=== PATIENT | male | born 1955 | race Two or more races ===

== ENCOUNTER 2016-11-08 15:44 | Inpatient (IN) | payer MEDICAID ==
[~2016-11-08] VITALS: Ht 162.6 cm; Wt 56.2 kg
[2016-11-08 16:00] VITALS: BP 146/98
--- NOTE | 2016-11-08 16:02 | Emergency Room Report ---
History of Present Illness General Chief Complaint: Altered Mental Status Source: Patient Present Illness HPI Patient presents for complaints of altered mental status he reports his called the paramedics for possibly a low blood sugar Patient himself is an extremely poor historian Reports taking insulin for his diabetes Also reports that he was at [facility] last week for right eye problems he reports having laser surgery there However his vision is still the same Denies any chest pain or shortness of breath patient appears weak and takes several seconds to start responding to our questioning And is not quite sure about his presentation here today Allergies: Coded Allergies: No Known Allergies (Unverified , 11/08/16) Patient History Past Medical History: see triage record Pertinent Family History: none Reviewed Nursing Documentation: PMH: Agreed, PSxH: Agreed Nursing Documentation-PMH Past Medical History: No History, Except For Hx Hypertension: Yes Hx Diabetes: Yes Review of Systems All Other Systems: negative except mentioned in HPI Physical Exam Vital Signs Date Time Temp Pulse Resp B/P Pulse Ox O2 Delivery O2 Flow Rate FiO2 11/08/16 15:42 87 16 156/99 100 Room Air Sp02 EP Interpretation: reviewed, normal General Appearance: well appearing, no apparent distress Head: normocephalic, atraumatic Eyes: bilateral eye EOMI, bilateral eye PERRL, bilateral eye other - Patient is blind in the right eye ENT: hearing grossly normal, TMs + canals normal, uvula midline, dry mucus membranes Neck: full range of motion, supple, no meningismus, no bony tend Respiratory: lungs clear, normal breath sounds, no rhonchi, no respiratory distress, no retraction, no accessory muscle use Cardiovascular #1: normal peripheral pulses, regular rate, rhythm, no edema, no gallop, no JVD, no murmur Gastrointestinal: normal bowel sounds, non tender, soft, no mass, no organomegaly, non-distended, no guarding, no hernia, no pulsatile mass, no rebound Genitourinary: no CVA tenderness Musculoskeletal: normal inspection Neurologic: oriented x3, responsive, sensory intact Psychiatric: mood/affect normal Skin: warm/dry, other - foot ulcer Lymphatic: normal inspection, no adenopathy Medical Decision Making Diagnostic Impression: Primary Impression: Hypoglycemia Additional Impression: Altered mental status ER Course Multiple differentials considered The patient is complex requiring extensive blood work At this time the patient's hemoglobin has slowly declined He did receive high-dose of glucose by paramedics Given the oral intake and the patient's poor outpatient disposition Patient was admitted for further inpatient care Labs Test 11/08/16 16:15 11/08/16 16:21 White Blood Count 7.6 K/UL (4.8-10.8) Red Blood Count 3.99 M/UL (4.70-6.10) Hemoglobin 11.7 G/DL (14.2-18.0) Hematocrit 35.0 % (42.0-52.0) Mean Corpuscular Volume 88 FL (80-99) Mean Corpuscular Hemoglobin 29.3 PG (27.0-31.0) Mean Corpuscular Hemoglobin Concent 33.4 G/DL (32.0-36.0) Red Cell Distribution Width 10.7 % (11.6-14.8) Platelet Count 292 K/UL (150-450) Mean Platelet Volume 7.8 FL (6.5-10.1) Neutrophils (%) (Auto) 61.3 % (45.0-75.0) Lymphocytes (%) (Auto) 19.2 % (20.0-45.0) Monocytes (%) (Auto) 10.4 % (1.0-10.0) Eosinophils (%) (Auto) 8.1 % (0.0-3.0) Basophils (%) (Auto) 1.0 % (0.0-2.0) Prothrombin Time 13.2 SEC (9.30-11.50) Prothromb Time International Ratio 1.3 (0.9-1.1) Activated Partial Thromboplast Time 32 SEC (23-33) Sodium Level 138 mEQ/L (135-145) Potassium Level 3.9 mEQ/L (3.4-4.9) Chloride Level 96 mEQ/L (98-107) Carbon Dioxide Level 24 mEQ/L (20-30) Anion Gap 18 (5-15) Blood Urea Nitrogen 18 mg/dL (7-23) Creatinine 0.7 mg/dL (0.7-1.2) Estimat Glomerular Filtration Rate > 60 mL/min (>60) Glucose Level 212 mg/dL (74-106) Lactic Acid Level 1.50 mmol/L (0.66-2.22) Calcium Level 9.6 mg/dL (8.6-10.2) Total Bilirubin 0.2 mg/dL (0.0-1.2) Aspartate Amino Transf (AST/SGOT) 23 U/L (5-40) Alanine Aminotransferase (ALT/SGPT) 18 U/L (3-41) Alkaline Phosphatase 106 U/L (40-129) Total Creatine Kinase 58 U/L (38-174) Creatine Kinase MB 2.8 ng/mL (< 6.7) Creatine Kinase MB Relative Index 4.8 Troponin I < 0.30 ng/mL (<=0.30) Pro-B-Type Natriuretic Peptide 305 pg/mL (0-125) Total Protein 8.0 g/dL (6.6-8.7) Albumin 3.8 g/dL (3.5-5.2) Globulin 4.2 g/dL Albumin/Globulin Ratio 0.9 (1.0-2.7) Lipase 63 U/L (< 60) Urine Color Pale yellow Urine Appearance Clear Urine pH 7 (4.5-8.0) Urine Specific [place] 1.005 (1.005-1.035) Urine Protein Negative (NEGATIVE) Urine Glucose (UA) 3+ (NEGATIVE) Urine Ketones Negative (NEGATIVE) Urine Occult Blood 1+ (NEGATIVE) Urine Nitrite Negative (NEGATIVE) Urine Bilirubin Negative (NEGATIVE) Urine Urobilinogen Normal MG/DL (0.0-1.0) Urine Leukocyte Esterase Negative (NEGATIVE) Urine RBC 0-2 /HPF (0 - 0) Urine WBC 0-2 /HPF (0 - 0) Urine Squamous Epithelial Cells Occasional /LPF Urine Bacteria Occasional /HPF (NONE) Rhythm Strip Diag. Results EP Interpretation: yes Rate: 77 Rhythm: NSR, no PVC's, no ectopy Chest X-Ray Diagnostic Results EP Interpretation: Yes Findings: no consolidation, no effusion, no pneumothorax Number of Views: 1 Last Vital Signs Date Time Temp Pulse Resp B/P Pulse Ox O2 Delivery O2 Flow Rate FiO2 11/08/16 15:42 87 16 156/99 100 Room Air Status: improved Disposition: ADMITTED INPATIENT Condition: Serious OSMIN DUNHAM D.O. Nov 08, 2016 16:02
[2016-11-08 16:34] LABS: EOSINOPHILS % (AUTO) 8.1 % (0.0-3.0); LYMPHOCYTES % (AUTO) 19.2 % (20.0-45.0); MEAN CORPUSCULAR HEMOGLOBIN 29.3 PG (27.0-31.0); MEAN CORPUSCULAR HGB CONC 33.4 G/DL (32.0-36.0); MEAN CORPUSCULAR VOLUME 88 FL (80-99); MEAN PLATELET VOLUME 7.8 FL (6.5-10.1); MONOCYTES % (AUTO) 10.4 % (1.0-10.0); NEUTROPHILS % (AUTO) 61.3 % (45.0-75.0); PLATELET COUNT 292 K/UL (150-450); RED BLOOD COUNT 3.99 M/UL (4.70-6.10); RED CELL DISTRIBUTION WIDTH 10.7 % (11.6-14.8); WHITE BLOOD COUNT 7.6 K/UL (4.8-10.8)
[2016-11-08 16:40] LABS: INR 1.3 (0.9-1.1); PROTHROMBIN TIME 13.2 SEC (9.30-11.50)
[2016-11-08 16:52] LABS: TROPONIN I < 0.30 ng/mL (<=0.30)
[2016-11-08 16:55] LABS: ALANINE AMINOTRANSFERASE 18 U/L (3-41); ALBUMIN/GLOBULIN RATIO 0.9 (1.0-2.7); ASPARTATE AMINO TRANSFERASE 23 U/L (5-40); CALCIUM 9.6 mg/dL (8.6-10.2); CHLORIDE 96 mEQ/L (98-107); CREATININE 0.7 mg/dL (0.7-1.2); GLOMERULAR FILTRATION RATE > 60 mL/min (>60); HEMOLYSIS 27; LIPASE 63 U/L (< 60); POTASSIUM 3.9 mEQ/L (3.4-4.9); SODIUM 138 mEQ/L (135-145)
[2016-11-08 17:04] LABS: APPEARANCE,URINE CLEAR; KETONES,URINE NEGATIVE (NEGATIVE); LEUKOCYTE ESTERASE ,URINE NEGATIVE (NEGATIVE); NITRITE,URINE NEGATIVE (NEGATIVE); PH,URINE 7 (4.5-8.0); PROTEIN,URINE NEGATIVE (NEGATIVE); UROBILINOGEN,URINE NORMAL MG/DL (0.0-1.0)
[2016-11-08 17:05] LABS: ANION GAP 18 (5-15); CARBON DIOXIDE 24 mEQ/L (20-30); CKMB 2.8 ng/mL (< 6.7)
[2016-11-08] MEDS ORDERED: METOPROLOL TART25 MG ORAL ×2 (17:08)
[2016-11-08] MEDS ORDERED: GLUCOPHAGE1000 MG ORAL (17:08)
[2016-11-08] MEDS ORDERED: ASPIR 8181 MG ORAL (17:08)
[2016-11-08] MEDS ORDERED: NOVOLIN R100 UNIT/1 SUBQ ×2 (17:08→19:08)
[2016-11-08] MEDS ORDERED: DORZOLAMIDE HCL10 M1 BOTH EYES (17:08)
[2016-11-08] MEDS ORDERED: GABAPENTIN600 MG ORAL (17:08)
[2016-11-08] MEDS ORDERED: ATORVASTATIN CA80 MG ORAL (17:08)
[2016-11-08] MEDS ORDERED: DOC-Q-LACE100 M1 ORAL (17:08)
[2016-11-08] MEDS ORDERED: CLOPIDOGREL75 MG ORAL (17:08)
[2016-11-08] MEDS ORDERED: NOVOLIN N100 UNIT/1 SUBQ ×2 (17:08→19:08)
[2016-11-08 17:12] VITALS: BP 138/72
[2016-11-08 17:22] LABS: BACTERIA,URINE OCCASIONAL /HPF; RBC,URINE 0-2 /HPF (0 - 0); SQUAMOUS EPITHELIAL CELL,UR OCCASIONAL /LPF (NONE/OCC); WBC,URINE 0-2 /HPF (0 - 0)
[2016-11-08 19:00] VITALS: BP 136/74
[2016-11-08] MEDS ORDERED: Mylanta II UD 30ml ORAL PRN (19:30)
[2016-11-08] MEDS: Aspirin EC 81mg tab ORAL SCH (19:30)
[2016-11-08] MEDS ORDERED: Zolpidem 5mg tab ORAL PRN (19:30)
[2016-11-08] MEDS: Atorvastatin 80mg tab ORAL SCH (20:47)
[2016-11-08] MEDS: Metoprolol 25mg tab ORAL SCH (20:47)
[2016-11-08] MEDS: Dorzolamide 2% Btl BOTH EYES SCH ×2 (21:00→21:43)
[2016-11-08] MEDS: NovoLOG Insulin Flexpen SUBQ SCH (21:44)
[2016-11-08] MEDS ORDERED: COSOPT EYE DROP10 M1 BOTH EYES (22:06)
[2016-11-08] MEDS: Cosopt Opth Soln 10 mL Btl BOTH EYES SCH (22:28)
[2016-11-09] VITALS: BP 105/62
[2016-11-09 04:00] VITALS: BP 110/59
[2016-11-09] MEDS: NovoLOG Insulin Flexpen SUBQ SCH ×4 (06:32→20:37)
[2016-11-09 07:34] LABS: HEMOGLOBIN A1C 9.8 % (< 6.0)
[2016-11-09 08:21] LABS: ALANINE AMINOTRANSFERASE 15 U/L (3-41); ANION GAP 14 (5-15); ASPARTATE AMINO TRANSFERASE 16 U/L (5-40); CALCIUM 8.8 mg/dL (8.6-10.2); CARBON DIOXIDE 25 mEQ/L (20-30); CHLORIDE 101 mEQ/L (98-107); CHOLESTEROL 135 mg/dL (< 200); CHOLESTEROL/HDL RATIO 4.4 (3.3-4.4); CREATININE 0.6 mg/dL (0.7-1.2); GLOMERULAR FILTRATION RATE > 60 mL/min (>60); HEMOLYSIS 0; LDL CHOLESTEROL (CALC.) 79 mg/dL (60-99); POTASSIUM 3.8 mEQ/L (3.4-4.9); SODIUM 140 mEQ/L (135-145); TOTAL PROTEIN 6.8 g/dL (6.6-8.7)
[2016-11-09 08:46] VITALS: BP 115/66
--- NOTE | 2016-11-09 09:54 | Diagnostic Imaging Report ---
Indications: Altered mental status Technique: Continuous helical CT imaging of the brain was performed with nonionic exposure control on a Siemens sensation [address] scanner. Axial and coronal images were reconstructed at 5 mm slice thickness and interval. CTDI volume(s): 70 mGy Total DLP: 1396 mGy-cm Findings: Comparison: None Mild low attenuation is present in the bilateral periventricular white matter. Ventricles, cisterns, and sulci are diffusely prominent. No evidence of mass or hemorrhage, mass effect, midline shift, hydrocephalus, or increased intracranial pressure. Bone window images are unremarkable. Visualized paranasal sinuses and mastoid air cells are clear. IMPRESSION: No evidence of acute intracranial pathology Diffuse atrophy, mild chronic microvascular ischemic changes bilateral cerebral periventricular white matter, prominent for age. . Written preliminary report placed in PACS 11/08/[address] scanner at [facility] is accredited by the [employer] and the scans are performed using protocols designed to limit radiation exposure to as low as reasonably achievable to attain images of sufficient resolution adequate for diagnostic evaluation.
--- NOTE | 2016-11-09 09:56 | Diagnostic Imaging Report ---
Indication: Chest pain Technique: Single portable AP view of the chest. Findings: Comparison: None. The bones and extra pulmonary soft tissues, cardiomediastinal silhouette, pulmonary vasculature and parenchyma, and pleural surfaces are unremarkable. IMPRESSION: Negative portable AP chest.
[2016-11-09] MEDS: Cosopt Opth Soln 10 mL Btl BOTH EYES SCH ×2 (10:49→20:35)
[2016-11-09] MEDS: Docusate 100mg cap ORAL PRN (10:51)
[2016-11-09] MEDS: Aspirin EC 81mg tab ORAL SCH (10:51)
[2016-11-09] MEDS: Metoprolol 25mg tab ORAL SCH ×2 (10:52→20:34)
[2016-11-09 12:23] VITALS: BP 151/83
--- NOTE | 2016-11-09 13:04 | History & Physical ---
History and Physical History & Physicial HP dictated # [id number] ALISON HELLER Nov 09, 2016 13:04
--- NOTE | 2016-11-09 14:24 | Wound Care Consultation ---
Wound Assessment Wound Assessment : Wound Present on Admission: Yes New Wound: No Status Change of Wound: No Wound Location Body Site Modif: left, medial Wound Location Body Site: heel Lei Test: Does not Lei Vascular Issues: diabetic foot ulcers Wound Thickness: Full Thickness Wound Length: 3.5 Wound Width: 2.5 Wound Depth: 0.5 Percent of Wound [place]/Red: 100 Wound Drainage Description: Serosanguineous Wound Drainage Amount: Scant Wound Drainage Odor: None/Absent Tissue Surrounding Wound: Intact Wound General Appearance: Reddened, Well Approximated, Draining Wound Comment #1 Left medial heel diabetic foot ulcer Recommendation -Cleanse with saline pat dry apply hydrogel to wound bed, cover with calcium alginate wrap with kerlix daily and PRN soiled/dislodged. -Keep clean and dry -Turn and reposition -Elevate both legs -Offload both heels -Heel protector on both heels -Optimize nutrition -Assess and f/u with MD for any changes MELITON ANDERSON RN Nov 09, 2016 14:23
[2016-11-09 16:02] VITALS: BP 131/70
[2016-11-09 20:30] VITALS: BP 134/75
[2016-11-09] MEDS: Atorvastatin 80mg tab ORAL SCH (20:34)
[2016-11-09] MEDS: Insulin NPH SUBQ SCH ×2 (23:00→23:40)
[2016-11-10] VITALS: BP 113/65
--- NOTE | 2016-11-10 02:08 | History and Physical Report ---
DATE OF ADMISSION: 11/08/2016 CHIEF COMPLAINT: Change in mental status. HISTORY OF PRESENT ILLNESS: This is a 61-year-old male, who was brought in by paramedics for a change in mental status. The patient is diabetic. Reportedly, the blood sugar was 67 and the patient was picked up. The patient was confused. They gave the patient D50. Blood sugar went up to 238. The patient was lethargic and had clammy skin to touch. The patient was still altered in the emergency room and was admitted. PAST MEDICAL HISTORY: The patient has a history of diabetes for about 30 years. He is on insulin. The patient has history of hypertension and also he says that he has had heart problems. He has also history of laser surgery recently at [place] on the right eye. He still has poor vision and he says that he gives himself insulin. It is unclear if he is able to see well to administered the insulin. MEDICATIONS: Reviewed in the EMR. SOCIAL HISTORY: The patient lives with his . No history of smoking. He had previous history of alcohol abuse. REVIEW OF SYSTEMS: As above. PHYSICAL EXAMINATION: GENERAL: The patient is a 61-year-old male, in no acute distress. VITAL SIGNS: Blood pressure 156/99, pulse 87, and respirations 16. HEENT: [place] conjunctivae. Anicteric sclerae. NECK: Supple. LUNGS: Clear to auscultation. HEART: S1 and S2 without murmurs or rubs. ABDOMEN: Soft and nontender. EXTREMITIES: No cyanosis or edema. LABORATORY FINDINGS: The CBC shows a WBC of 7.6, hematocrit 35, hemoglobin is 11.7, and platelets 292,000. A chemistry panel shows a serum sodium 140, potassium 3.8, chloride 101, CO2 25, BUN is 12, creatinine 0.6, and blood sugar is 256. Hemoglobin A1c was 9.8. UA shows no protein. ASSESSMENT: This is a 61-year-old male with insulin-dependent diabetes mellitus, who was admitted with hypoglycemic reaction and change in mental status. He is better now. The question is if he can administered insulin at home safely as his vision is poor. PLAN: The patient was started on sliding scale insulin. He is being hydrated with IV fluids. continue NPH, which will be adjusted gradually. Hayder Friedman M.D. DR: MATT JOB#: [id number] CC: LUCAS
[2016-11-10 04:00] VITALS: BP 99/54
[2016-11-10] MEDS: NovoLOG Insulin Flexpen SUBQ SCH ×5 (06:22→21:38)
[2016-11-10] MEDS ORDERED: Insulin NPH SUBQ SCH (06:30)
[2016-11-10 08:00] VITALS: BP 102/55
[2016-11-10] MEDS: Aspirin EC 81mg tab ORAL SCH (08:14)
[2016-11-10] MEDS: Docusate 100mg cap ORAL PRN (08:14)
[2016-11-10] MEDS: Cosopt Opth Soln 10 mL Btl BOTH EYES SCH ×2 (08:20→20:16)
[2016-11-10] MEDS: Metoprolol 25mg tab ORAL SCH ×2 (08:20→20:16)
[2016-11-10] MEDS: Insulin NPH SUBQ SCH ×2 (10:07→19:58)
[2016-11-10 11:48] VITALS: BP 148/89
--- NOTE | 2016-11-10 13:26 | General Progress Note ---
Assessment/Plan Problem List: (1) DM (diabetes mellitus) ICD Codes: E11.9 - Type 2 diabetes mellitus without complications SNOMED: 32407487 Qualifiers: (2) Altered mental status ICD Codes: R41.82 - Altered mental status, unspecified SNOMED: 680254805 (3) Hypoglycemia ICD Codes: E16.2 - Hypoglycemia, unspecified SNOMED: 113013238 Assessment/Plan Regular Insulin 6 units with meals PT Discussed with family Subjective Allergies: Coded Allergies: No Known Allergies (Unverified , 11/08/16) Subjective In NAD Objective Last 24 Hour Vital Signs Date Time Temp Pulse Resp B/P Pulse Ox O2 Delivery O2 Flow Rate FiO2 11/10/16 11:48 98.6 87 20 148/89 95 Room Air 11/10/16 09:23 97.7 11/10/16 08:20 80 102/55 11/10/16 08:00 97.7 80 19 102/55 99 Room Air 11/10/16 04:00 97.9 78 18 99/54 98 Room Air 11/10/16 03:50 78 80 78 11/10/16 00:00 97.4 81 18 113/65 98 Room Air 11/09/16 20:34 85 134/75 11/09/16 20:30 97.7 85 19 134/75 99 Room Air 11/09/16 16:02 97.7 80 17 131/70 99 Room Air Intake and Output 11/09/16 11/10/16 18:59 06:59 Intake Total 1475 ml 2100 ml Output Total 1000 ml 1460 ml Balance 475 ml 640 ml Intake Oral 1100 ml 1200 ml IV Total 375 ml 900 ml Output Urine Total 1000 ml 1460 ml Height (Feet): 5 Height (Inches): 4.00 Weight (Pounds): 124 Cardiovascular: normal rate Respiratory/Chest: lungs clear Edema: no edema noted ALISON Donnelly Nov 10, 2016 13:26
[2016-11-10 16:00] VITALS: BP 164/91
[2016-11-10 19:00] VITALS: BP 159/89
[2016-11-10] MEDS: Atorvastatin 80mg tab ORAL SCH (20:16)
[2016-11-11] VITALS: BP 153/97
[2016-11-11 04:00] VITALS: BP 111/60
[2016-11-11] MEDS: NovoLOG Insulin Flexpen SUBQ SCH ×4 (06:43→12:03)
[2016-11-11] MEDS: Insulin NPH SUBQ SCH (06:46)
[2016-11-11 08:14] VITALS: BP 129/73
[2016-11-11] MEDS: Cosopt Opth Soln 10 mL Btl BOTH EYES SCH (08:42)
[2016-11-11] MEDS: Docusate 100mg cap ORAL PRN (08:42)
[2016-11-11] MEDS: Metoprolol 25mg tab ORAL SCH (08:43)
[2016-11-11] MEDS: Aspirin EC 81mg tab ORAL SCH (08:43)
[2016-11-11 12:10] VITALS: BP 136/77
[2016-11-11] MEDS ORDERED: NOVOLOG100 UNITS1 SUBQ (14:48)
--- NOTE | 2016-11-11 14:53 | Consultation ---
Consult Note Assessment/Plan Dc dictated # [id number] ALISON HELLER Nov 11, 2016 14:53
[2016-11-11 16:00] VITALS: BP 154/91
[2016-11-11] MEDS ORDERED: Tubing IV Secondary IV ONE (17:39)
--- NOTE | 2016-11-12 05:27 | Discharge Summary ---
DATE OF ADMISSION: 11/08/2016 DATE OF DISCHARGE: 11/11/2016 CHIEF COMPLAINT: Change in mental status. HISTORY OF PRESENT ILLNESS: This is a 61-year-old, male with the history of diabetes mellitus insulin-dependent, who was admitted with change in mental status as a result of hypoglycemia. HOSPITAL COURSE: The patient was already given D50 and his sugar came up to 238 upon admission and he was lethargic, but gradually his mental status improved. He was on telemetry bed and then transferred to medical floor. It is unclear if he was able to keep incident safely since he has had problems with his vision. He was on NPH insulin 14 units with breakfast and 7 units at the dinnertime. These were continued, however in order to make it simpler, his regular insulin was changed to 6 units with each meal instead of varying doses, which he was taking at home. The patient remained stable and was discharged home. DISCHARGE DIAGNOSES: 1. Hypoglycemia, as a result of reaction to insulin. 2. Change in mental status, as a result of hypoglycemia. 3. History of diabetes mellitus. Hayder Friedman M.D. DR: YUE JOB#: [id number] CC: LUCAS
== END 2016-11-11 17:40 | disposition home or self-care (01) | DRG 420 ==
LOC: EDBD 15:44 → EMR 15:55 → 3E 16:16 → EDBEDREQ 16:34 → 4E 18:06
DX: E11.649 Type 2 diabetes mellitus with hypoglycemia without coma (principal); I10 Essential (primary) hypertension; Z79.4 Long term (current) use of insulin
CPT/HCPCS: 36415; 70450; 71010; 80053; 80061; 81003; 82550; 82553; 82962; 83036; 83605; 83690; 83880; 84484; 85025; 85610; 85730; 87040; 87070; 87181; 87205; 93005; J1815